=== PATIENT | male | born 1955 | race Caucasian/White ===

== ENCOUNTER 2018-11-19 10:10 | Outpatient (CLI) | payer OTHER ==
--- NOTE | 2018-11-19 10:23 | RAD ---
XR Chest Pa Lat STANDARD HISTORY: Cough COMPARISON: 03/22/2008 FINDINGS: The heart size is normal. The lungs are well expanded without focal areas of consolidation, pneumothorax or pleural effusions. There are changes of median sternotomy. The aorta is tortuous. There is mild linear scarring in the left mid lung. There are degenerative changes in the spine.. IMPRESSION: No radiographic evidence of acute cardiopulmonary process.
== END 2018-11-19 10:11 | disposition home or self-care (01) ==
LOC: RAD-FRANK 10:10
PROVIDERS: ATTEND Nurse Practitioner Family
DX: R05 Cough (principal); R09.89 Other specified symptoms and signs involving the circulatory and respiratory systems
CPT/HCPCS: 71046

== ENCOUNTER 2020-11-07 16:12 | Emergency (ER) | payer OTHER ==
[~2020-11-07 16:12] MED LIST: Iopamidol-370 76% 500 ML 1 ML ONE
[2020-11-07] MEDS ORDERED: Fentanyl 100 MCG/2 ML VIAL ONE ×2 (16:32→17:33)
[2020-11-07 16:35] LABS: #Basophils 0.1 thou/uL (0.0-0.2); #Eosinphils 0.2 thou/uL (0.0-0.7); #Lymphocytes 2.3 thou/uL (1.20-3.40); #Monocytes 0.8 thou/uL (0.11-0.59); #Neutrophils 4.4 thou/uL (1.40-6.50); %Basophils 1.4 % (0.0-1.0); %Eosinophils 2.2 % (0.0-10.0); %Lymphocytes 30.2 % (21.0-51.0); %Monocytes 9.8 % (0.0-10.0); %Neutrophils 56.5 % (42.0-75.0); Hemoglobin 16.9 g/dL (14.0-18.0); Mean Corpuscular Volume 97.1 fL (78.0-98.0); Mean Platelet Volume 7.2 fL (7.4-10.4); Platelet Count 201 thou/uL (130-400); RBC Distribution Width 11.6 % (11.5-14.5); Red Blood Cell (RBC) Count 4.96 mill/uL (4.70-6.10); White Blood Cell (WBC) Count 7.7 thou/uL (4.8-10.8)
[2020-11-07] MEDS ORDERED: Labetalol HCl 100 MG/20 ML VIAL ONE (16:49)
[2020-11-07] MEDS ORDERED: niCARdipine 20MG In NaCl 20 MG/200 ML BAG ONE (16:49)
[2020-11-07 16:58] LABS: ALT (SGPT) 46 U/L (8-55); AST (SGOT) 26 U/L (5-34); Albumin 4.4 g/dL (3.4-4.8); Alkaline Phosphatase 83 U/L (40-110); Anion Gap 17 mmol/L (10-20); BUN (Urea Nitrogen) 14 mg/dL (8.4-25.7); Bilirubin, Total 0.5 mg/dL (0.2-1.2); Calc. Creatinine Clearance 0 mL/min (70-130); Calcium 10.2 mg/dL (7.8-10.44); Carbon Dioxide 20 mmol/L (23-31); Chloride 107 mmol/L (98-107); Globulin 3.4 g/dL (2.4-3.5); Glucose 126 mg/dL (80-115); Protein, Total 7.8 g/dL (5.8-8.1); Sodium 140 mmol/L (136-145)
[2020-11-07 18:12] LABS: SARS-CoV-2 NAA Rapid Test Not Detected (NotDetected)
== END 2020-11-07 18:13 | disposition short-term general hospital (02) ==
LOC: ERS 16:12
DX: I71.03 Dissection of thoracoabdominal aorta (principal); I10 Essential (primary) hypertension; I25.10 Atherosclerotic heart disease of native coronary artery without angina pectoris
CPT/HCPCS: 71045; 75635; 80053; 83880; 84484; 85025; 93005; 94760; 96365; 96375; 96376; J3010; Q9967; U0002; U0005